=== PATIENT | female | born 1980 | race American Indian/Alaskan Native ===

== ENCOUNTER 2021-10-07 06:22 | Observation (INO) | payer OTHER ==
--- NOTE | 2021-09-29 13:34 | History and Physical Report ---
History of Present Illness History of present illness: 41 yo with daily LLQ pain, along with dysmenorrhea and dyspareunia. PT also with heavy menses but no metrorrhagia. EMBx was WNL. U/S showed a normal uterus but a couple small 2 cm left ovarian cysts suggestive of endometriomas. PT had a sister who passed from ovarian CA at the age of 40. Past History Past Medical History: other (GERD) Past Surgical History: other (tubal ligation) Social history: no significant social history Medications and Allergies Allergies Allergy/AdvReac Type Severity Reaction Status Date / Time No Known Allergies Allergy Unverified 09/24/21 16:25 Home Medications Medication Instructions Recorded Confirmed Last Taken Type No Known Home Medications [No 08/06/21 09/24/21 Unknown History Reported Home Medications] Review of Systems All systems: negative (except HPI) - Physical Exam Cardiovascular: Regular rate, Normal S1, Normal S2 Lungs: Positive: Clear to auscultation, Normal air movement Abdomen: Positive: soft. Negative: distention, tenderness Results All other labs normal. Assessment and Plan - Patient Problems (1) Pelvic pain Status: Acute Plan to address problem: PT will be presenting on 10/07/21 for RAH/BSO. Pt fully consented for surgery. R/B/A d/w pt including surgical menopause that will result from it. PT understands and accepts this and agrees to proceed with surgery. All questions answered. (2) Menorrhagia Status: Acute
[2021-10-07] MEDS ORDERED: LACTATED RINGERS 1,000 ML ONE ×2 (07:06→10:16)
[2021-10-07] MEDS ORDERED: fentaNYL 100 MCG/2 ML INJ ONE ×2 (07:13→07:44)
[2021-10-07] MEDS ORDERED: LIDOCAINE MPF (2%) 20 MG/1 ML VIAL 5 ML ONE (07:13)
[2021-10-07] MEDS ORDERED: ROCURONIUM 50 MG/5 ML INJ IV ONE ×2 (07:13→09:26)
[2021-10-07] MEDS ORDERED: propofoL 200 MG/20 ML VIAL IV ONE (07:14)
[2021-10-07] MEDS ORDERED: NEOMY 40 MG/POLYMYXIN B 200,000 UNITS/ML (GU) AMPULE IR ONE ×2 (07:16→10:48)
[2021-10-07] MEDS ORDERED: ceFAZolin/STERILE WATER 2 GM/20 ML SYRINGE IV NR (07:30)
[2021-10-07] MEDS ORDERED: CELECOXIB 200 MG CAP PO NR (07:30)
[2021-10-07] MEDS ORDERED: GABAPENTIN 300 MG CAP PO NR (07:30)
[2021-10-07] MEDS ORDERED: MAGNESIUM OXIDE 400 MG TAB PO ONE ×2 (07:30→07:43)
[2021-10-07] MEDS ORDERED: ACETAMINOPHEN 500 MG TAB PO ONE (07:30)
[2021-10-07] MEDS ORDERED: dexAMETHasone 20 MG/5 ML VIAL ONE (07:33)
[2021-10-07] MEDS ORDERED: LIDOCAINE (1%) 10 MG/1 ML VIAL 20 ML MDV ONE (07:33)
[2021-10-07] MEDS ORDERED: BUPIVACAINE/PF (0.25%) 2.5 MG/ML 30 ML VIAL INFILTRATI ONE (07:33)
[2021-10-07 07:37] LABS: Basophils % (Auto) 0.4 % (0.0-1.8); Eosinophils # (Auto) 0.1 K/mm3 (0.0-0.4); Eosinophils % (Auto) 1.2 % (0.0-4.3); Hematocrit 37.8 % (30.3-42.9); Hemoglobin 13.1 gm/dl (10.1-14.3); Lymphocytes # (Auto) 2.3 K/mm3 (1.2-5.4); Lymphocytes % (Auto) 29.8 % (13.4-35.0); Mean Corpuscular HGB Conc 35 % (30-34); Mean Corpuscular Volume 87 fl (79-97); Monocytes # (Auto) 0.6 K/mm3 (0.0-0.8); Monocytes % (Auto) 7.5 % (0.0-7.3); Platelet Count 377 K/mm3 (140-440); Red Blood Count 4.37 M/mm3 (3.65-5.03); Red Cell Distribution Width 14.2 % (13.2-15.2)
--- NOTE | 2021-10-07 07:40 | Anesthesia Consultation ---
Anesthesia Consult and Med Hx Date of service: 10/07/21 - Airway Anesthetic Teeth Evaluation: Good ROM Head & Neck: Adequate Mental/Hyoid Distance: Adequate Mallampati Class: Class II Intubation Access Assessment: Probably Good - Pulmonary Exam CTA: Yes - Cardiac Exam Cardiac Exam: RRR - Pre-Operative Health Status ASA Pre-Surgery Classification: ASA2 Proposed Anesthetic Plan: General Nerve Block: TAP block - Pulmonary Hx Smoking: Yes (quit 4 yrs ago) Hx Asthma: No Hx Sleep Apnea: No - Cardiovascular System Hx Hypertension: No Hx Heart Attack/AMI: No - Central Nervous System Hx Neuromuscular Disorder: No Hx Seizures: No CVA: No Hx Psychiatric Problems: No - Gastrointestinal Hx Gastroesophageal Reflux Disease: No - Endocrine Hx Renal Disease: No Hx Liver Disease: No Hx Non-Insulin Dependent Diabetes: No Hx Thyroid Disease: No - Hematic Hx Anemia: No Hx Sickle Cell Disease: No - Other Systems Hx Alcohol Use: Yes (Occas) Hx Substance Use: No Hx Cancer: No Hx Obesity: Yes (BMI 30) - Additional Comments Anesthesia Medical History Comments: no hx of anesthetic complications
--- NOTE | 2021-10-07 07:40 | Anesthesia Day of Surgery ---
Anesthesia Day of Surgery - Day of Surgery Patient Examined: Yes Patient H&P Reviewed: Yes Patient is NPO: Yes
[2021-10-07] MEDS ORDERED: CELECOXIB 200 MG CAP ONE (07:42)
[2021-10-07] MEDS ORDERED: ACETAMINOPHEN 500 MG TAB ONE (07:42)
[2021-10-07] MEDS ORDERED: MIDAZOLAM 2 MG/2 ML INJ ONE (07:43)
[2021-10-07] MEDS ORDERED: GABAPENTIN 300 MG CAP ONE (07:43)
[2021-10-07] MEDS ORDERED: MIDAZOLAM 2 MG/2 ML INJ IV NR (07:50)
[2021-10-07] MEDS ORDERED: fentaNYL 100 MCG/2 ML INJ IV ONE (07:50)
[2021-10-07] MEDS ORDERED: ceFAZolin/Water 2 GM/20 ML 2 GM/20 ML SYRINGE IV ONE (08:02)
[2021-10-07] MEDS ORDERED: ONDANSETRON 4 MG/2 ML INJ ONE (08:25)
[2021-10-07] MEDS ORDERED: KETAMINE/STERILE WATER 50 MG/ML SYRINGE ONE (08:25)
[2021-10-07] MEDS ORDERED: ePHEDrine SULFATE 50 MG/1 ML INJ ONE (08:53)
[2021-10-07] MEDS ORDERED: NEOSTIGMINE 10MG/10 ML INJ MDV ONE (10:16)
[2021-10-07] MEDS ORDERED: GLYCOPYRROLATE 0.4 MG/2 ML INJ ONE (10:16)
[2021-10-07] MEDS ORDERED: HYDROmorphone 1 MG/1 ML INJ IV PRN (10:30)
[2021-10-07] MEDS ORDERED: ONDANSETRON 4 MG/2 ML INJ IV PRN ×2 (10:30→15:40)
[2021-10-07] MEDS ORDERED: SODIUM CHLORIDE 0.9% IRR 1,500 ML BOTTLE IR ONE (10:48)
--- NOTE | 2021-10-07 10:58 | Post Operative Note ---
Date of procedure: 10/07/21 Pre-op diagnosis: pelvic pain, menorrhagia Post-op diagnosis: same Findings: Patient with a slightly globular uterus but it was otherwise within normal limits. Both ovaries appeared within normal limits. Patient had a couple small paratubal cysts. Patient with a history of a tubal ligation. The anterior and posterior cul-de-sac were within normal limits with no significant scarring or obvious endometriosis. There was a small less than 1 cm pedunculated piece of soft tissue in the right posterior cul-de-sac off of that peritoneum. This was dissected out as part of the dissection of the hysterectomy. The rest of the general abdominal survey was within normal limits. Procedure: Indication: Patient is a 41-year-old G4, P4 with left lower quadrant pelvic pain as well as menorrhagia. As result patient is here for her robotic assisted hysterectomy and bilateral salpingo-oophorectomy. Procedure: Patient was taken to the operating room and prepped and draped in the usual fashion. Attention was first turned vaginally for placement of the V care cup uterine manipulator. This was done in the usual fashion including anchoring stitches at 12:00 and 6:00 of the cervical stroma with 0 Vicryl. The large Vcare cup was chosen and the manipulator was placed successfully and without difficulty. Attention was now turned abdominally. In the left upper quadrant about 2 fingerbreadths inferior to the costal margin in the midclavicular line, an 8 mm incision was made. The 8 mm trocar was successfully placed and the placement was confirmed with the camera. Attention was now turned to the placement of the 3 robotic trocars. The 2 lower quadrant ones were about 2 cm superior and medial to the ASIS on each side. These were 8 mm ports. They were placed under direct visualization with without difficulty. The 12 mm umbilical trocar site was also placed under direct visualization successfully and without difficulty. At this point the patient was placed in steep Trendelenburg. The robot was docked to the trochars. At this point I broke scrub and proceeded to the da Carisa console. First the pelvis was assessed and findings noted above. Good ureteral peristalsis was noted bilaterally both at the beginning of the case and at the end of the case. Attention was first turned to the left adnexa where the fallopian tube was resected from its attachments using the robotic vessel sealer. This dissection was carried to the round ligament. The ovarian ligament was also clamped cauterized and resected with the vessel sealer. The round ligament was also clamped cauterized and cut with the vessel sealer. Good hemostasis was noted. This was then done in the exact same fashion on the right side with equal success and good hemostasis. At this point attention was turned the bladder flap which was created using EndoShears. Good hemostasis noted. The anterior colpotomy ring indentation was then identified from the V care cup. Colpotomy incision was made until the green Vcare cup was visualized. This incision was then extended bilaterally. Attention was then turned posteriorly where the posterior colpotomy ring indentation was identified and the colpotomy incision was made. The colpotomy incision posteriorly was then extended bilaterally. The posterior peritoneal flap was created at this point bilaterally. Good hemostasis noted. At this point attention was turned to the the uterine vasculature which was clamped cauterized and cut using the vessel sealer on both sides. After this was completed the colpotomy was completed at the 3:00 and 9:00 positions. At this point the colpotomy was completed 360 degrees. At this point the uterus and tubes were successfully removed vaginally without difficulty. Attention was turned to closure of the vaginal cuff which was done using 0 V-Loc in a running fashion. Vaginal cuff was closed successfully and without difficulty. At this point the pelvis was well irrigated. The abdomen was desufflated and good hemostasis was noted. Abdomen was reinsufflated. Surgicel powder was then applied to all the areas of dissection. At this point the robot was undocked from the trochars. I scrubbed back in and first inspected the vaginal cuff both visually and with palpation. Good hemostasis noted and good integrity of the cuff was noted. Laparoscopically good hemostasis still noted throughout. The 12 mm trocar was removed and that fascia was closed using 0 Vicryl. At this point the abdomen was fully desufflated. The other 3 trochars were removed and those trocar sites were closed using 4-0 Vicryl in a subcuticular fashion as well as the 12 mm site. The procedure was concluded at this point. Patient tolerated the procedure well. All instrument lap counts were correct. Patient taken to the recovery room in stable condition. Anesthesia: YUDI Surgeon: JESSEE MERIDA Chute Greaser: FAN ORTIZ Estimated blood loss: other (25 cc) Pathology: list (uterus, tubes, ovaries) Specimen disposition: to lab Condition: stable Disposition: PACU
[2021-10-07] MEDS ORDERED: ACETAMINOPHEN 325 MG TAB PO PRN (11:00)
[2021-10-07] MEDS: HYDROmorphone 1 MG/1 ML INJ IV PRN ×2 (11:16→11:27)
[2021-10-07] MEDS ORDERED: MAGNESIUM HYDROXIDE (MOM) ORAL LIQD UDC PO PRN (11:30)
[2021-10-07] MEDS ORDERED: ONDANSETRON 4 MG ODT TAB PO PRN (11:30)
[2021-10-07] MEDS ORDERED: IBUPROFEN 800 MG TAB PO PRN (11:30)
[2021-10-07] MEDS ORDERED: oxyCODONE /ACETAMINOPHEN 5-325MG TAB PO PRN (11:30)
[2021-10-07] MEDS ORDERED: LACTATED RINGERS 1,000 ML IV SCH (13:00)
--- NOTE | 2021-10-07 13:49 | Post Anesthesia Evaluation ---
- Post Anesthesia Evaluation Patient Participated: Yes Airway Patent: Yes Stable Respiratory Function: Yes Nausea/Vomiting: No Temp > 96.8F: Yes Pain Manageable: Yes Adequeate Hydration: Yes Anesthesia Complications: No Block Receding Appropriately: Yes Patient on Ventilator: No
[2021-10-07] MEDS: MORPHINE 4 MG/1 ML INJ IV PRN ×2 (15:51→22:07)
[2021-10-07] MEDS: PANTOPRAZOLE 40 MG TAB PO SCH (18:24)
--- NOTE | 2021-10-07 19:12 | Event Note ---
Date: 10/07/21 postop check: vitals stable adequate urine output @360ml in [place] since admission to floor @16:42 patient is up ad carlton abd soft nt pain controlled with IV pain meds +ve nausea and vomitingx1 after lunch-advance diet slowly as tolerated with zofran prn Continue routine postop management Plan for DC home tomorrow with independent void See Claribel MATA
[2021-10-08 06:24] LABS: Hematocrit 34.7 % (30.3-42.9)
[2021-10-08] MEDS: PANTOPRAZOLE 40 MG TAB PO SCH (07:44)
--- NOTE | 2021-10-08 09:47 | Post Anesthesia Evaluation ---
- Post Anesthesia Evaluation Patient Participated: Yes Airway Patent: Yes Stable Respiratory Function: Yes Nausea/Vomiting: No Temp > 96.8F: Yes Pain Manageable: Yes Adequeate Hydration: Yes Anesthesia Complications: No Block Receding Appropriately: Yes Patient on Ventilator: No Other Comments: patient in a good condition, prepares for discharge
--- NOTE | 2021-10-08 10:04 | Short Stay Summary ---
Short Stay Documentation Date of service: 10/07/21 Narrative H&P: PT admitted on 10/07/21 for a Robotic hysterectomy/BSO, which was uncomplicated. See OP report for details. POD #1 Hgn was 12. Vitals were stable. Good urine output and able to void. Tolerating po. PT allowed to go home once she passed flatus with f/u in the office in 2 weeks. - History H&P: dictated Social history: no significant social history - Allergies and Medications Current Medications: Allergies No Known Allergies Allergy (Unverified 09/24/21 16:25) Home Medications Medication Instructions Recorded Confirmed Last Taken Type Ibuprofen [Motrin 800 MG tab] 800 mg PO Q8H PRN #30 tablet 10/07/21 Unknown Rx oxyCODONE /ACETAMINOPHEN [Percocet 1 tab PO Q6H PRN #30 tablet 10/07/21 Unknown Rx 5/325 mg] Active Medications Acetaminophen (Acetaminophen 325 Mg Tab) 650 mg PO Q4H PRN PRN Reason: Pain, Mild (1-3) Lactated Ringer's (Lactated Ringers) 1,000 mls @ 125 mls/hr IV DIRECT EDD Last Admin: 10/07/21 07:30 Dose: 125 mls/hr Ibuprofen (Ibuprofen 800 Mg Tab) 800 mg PO Q8H PRN PRN Reason: Pain, Moderate (4-6) Last Admin: 10/08/21 07:44 Dose: 800 mg Magnesium Hydroxide (Magnesium Hydroxide (Mom) Oral Liqd Udc) 30 ml PO Q4H PRN PRN Reason: Constipation Morphine Sulfate (Morphine 4 Mg/1 Ml Inj) 4 mg IV Q4H PRN PRN Reason: Pain , Severe (7-10) Last Admin: 10/07/21 22:07 Dose: 4 mg Ondansetron HCl (Ondansetron 4 Mg Odt Tab) 4 mg PO Q8H PRN PRN Reason: Nausea And Vomiting Last Admin: 10/07/21 15:50 Dose: 4 mg Ondansetron HCl (Ondansetron 4 Mg/2 Ml Inj) 4 mg IV Q8H PRN PRN Reason: Nausea And Vomiting Oxycodone/Acetaminophen (Oxycodone /Acetaminophen 5-325mg Tab) 1 tab PO Q6H PRN PRN Reason: Pain, Moderate (4-6) Pantoprazole Sodium (Pantoprazole 40 Mg Tab) 40 mg PO BIDAC EDD Last Admin: 10/08/21 07:44 Dose: 40 mg - Disposition Condition at discharge: Stable Disposition: 30 STILL A PATIENT - Discharge Diagnoses (1) Pelvic pain Status: Acute (2) Menorrhagia Status: Acute Short Stay Discharge Plan Follow up with: JESSEE MERIDA MD [Staff Physician] - 14 Days Prescriptions: Ibuprofen [Motrin 800 MG tab] 800 mg PO Q8H PRN #30 tablet PRN Reason: Pain, Moderate (4-6) oxyCODONE /ACETAMINOPHEN [Percocet 5/325 mg] 1 tab PO Q6H PRN #30 tablet PRN Reason: Pain, Moderate (4-6)
[2021-10-08 12:06] VITALS: BP 110/54
== END 2021-10-08 13:22 | disposition still patient (30) ==
LOC: OR 06:22 → OB 10:45
PROVIDERS: ADMIT Obstetrics & Gynecology; ATTEND Obstetrics & Gynecology
DX: N92.0 Excessive and frequent menstruation with regular cycle (principal); R10.2 Pelvic and perineal pain; K21.9 Gastro-esophageal reflux disease without esophagitis; Z98.51 Tubal ligation status; Z90.710 Acquired absence of both cervix and uterus; Z79.899 Other long term (current) drug therapy; Z98.890 Other specified postprocedural states
CPT/HCPCS: 36415; 58554; 64488; 81025; 85014; 85018; 85025; 86850; 86900; 86901; 88307; 96374; 96376; G0378; J1100; J1170; J1815; J2250; J2270; J2405; J2704; J2710; J3010; J3490; J7120; S2900; 64450; J0690; Q0162